=== PATIENT | female | born 1985 | race Caucasian/White ===

== ENCOUNTER 2019-04-16 06:04 | Outpatient (CLI) | payer BC ==
[~2019-04-16] VITALS: Ht 167.7 cm; Wt 73.6 kg
[~2019-04-16 06:04] MED LIST: CALC500T7 PO; DOCU100C37 PO; FAMO10TA43 PO; IBUP-1780 PO; IRON18TA PO; OXYC-465 PO; OXYC1TAB12 PO; PHEN37.53 PO; PREN-148 PO
[2019-04-18] MEDS ORDERED: DOCU-143 PO (07:45)
[2019-04-18] MEDS ORDERED: OXYC1TAB87 PO (07:45)
[2019-04-18] MEDS ORDERED: IBUP-1780 PO (07:45)
== END 2019-04-16 15:10 | disposition home or self-care (01) ==
LOC: PREOP 06:04
PROVIDERS: ATTEND Obstetrics & Gynecology
DX: Z01.818 Encounter for other preprocedural examination (principal)

== ENCOUNTER 2019-04-18 11:18 | Day surgery (SDC) | payer BC ==
[~2019-04-18] VITALS: Ht 167.7 cm; Wt 73.6 kg
[2019-04-18] VITALS (12 sets, daily range): BP systolic 100–141; BP diastolic 56–91
--- NOTE | 2019-04-18 07:40 | Progress Note-Pre Operative ---
Pre-Operative Progress Note H&P Reviewed The H&P was reviewed, patient examined and no changes noted. Date Seen by Provider: Apr 18, 2019 Time Seen by Provider: 12:32 Date H&P Reviewed: Apr 18, 2019 Time H&P Reviewed: 12:33 Pre-Operative Diagnosis: Chronic pelvic pain/severe dyspareunia HIPOLITO RICH MD Apr 18, 2019 07:40 POS
--- NOTE | 2019-04-18 07:41 | Progress Note-Post Operative ---
Post-Operative Progess Note Surgeon (s)/Dental Assisting Instructor (s) Surgeon HIPOLITO RICH MD Dental Assisting Instructor: Felicity CARO Pre-Operative Diagnosis Chronic pelvic pain/severe dyspareunia Post-Operative Diagnosis Same with extensive endometriosis and with abnormal appendix and with pathology pending Procedure & Operative Findings Date of Procedure 04/18/19 Procedure Performed/Findings TL H with BS, laparoscopic destruction of endometriosis, laparoscopic appendectomy Anesthesia Type GETA Estimated Blood Loss Estimated blood loss (mL): Minimal Specimens/Packing Specimens Removed Uterus and fallopian tubes, and appendix HIPOLITO RICH MD Apr 18, 2019 07:41 POS
--- NOTE | 2019-04-18 07:44 | Discharge Instructions ---
Discharge Instructions Discharge Medications New, Converted or Re-Newed RX: RX on Chart Patient Instructions Return to The Hospital For: As directed Activity & Diet Discharge Diet: No Restrictions Activity as Tolerated: No Orders-Post D/C & Referrals Follow Up Appt: Return to clinic on Saturday April 20, 2019 for staple removal Call to make follow up appt. for patient in 4 weeks. Activity: Rest for 24 hours, than as tolerated. Wound Care: May remove Band-Aid tomorrow. Replace as desired. Keep incisions clean and dry. Wash daily with soap and water. Please call in RX to patient pharmacy. Diet: As tolerated-Clear Liquids only if nauseated. Shower or tub bathe as desired. No driving for 24 hours, no alcoholic beverages for 24 hours, and nothing per vagina (no tampons, douching, or intercourse) for 8 weeks. Patient to return to the clinic as soon as possible for: Temperature greater than 101F, Severe Pain, Foul discharge from incision or vagina, Excessive Bleeding (more than a period). HIPOLITO RICH MD Apr 18, 2019 07:44 POS
[~2019-04-18 11:18] MED LIST changes: +DOCU-143 PO; +OXYC1TAB87 PO
[2019-04-18] MEDS ORDERED: LACTATED RINGERS 1,000 ML IV PRN (11:35)
[2019-04-18] MEDS ORDERED: BUPIVACAINE 0.25% 30 ML (SENSORCAINE) VIAL ONE (11:36)
[2019-04-18] MEDS ORDERED: BUP/EPI 0.5% 1:200,000 (MARCAINE) 10ML VIAL IJ ONE (11:37)
[2019-04-18] MEDS ORDERED: metroNIDAZOLE 500MG/100ML IVPB 100 ML IV ONE (11:45)
[2019-04-18] MEDS ORDERED: ceFAZolin INJECTION 1,000 MG in WATER (STERILE) FOR INJECTION 10 ML IV ONE (11:45)
[2019-04-18] MEDS ORDERED: ONDANSETRON 4 MG/2 ML (SDV) Z0FRAN ONE ×2 (12:10→12:31)
[2019-04-18] MEDS ORDERED: SCOPOLAMINE 1.5 MG (TRANSDERM-SCOP) PATCH ONE (12:10)
[2019-04-18] MEDS ORDERED: FAMOTIDINE 20MG/2ML IV (PEPCID) ONE (12:10)
[2019-04-18] MEDS ORDERED: ONDANSETRON 4 MG/2 ML (SDV) Z0FRAN IVP ONE (12:15)
[2019-04-18] MEDS ORDERED: SCOPOLAMINE 1.5 MG (TRANSDERM-SCOP) PATCH TD ONE (12:15)
[2019-04-18] MEDS ORDERED: FAMOTIDINE 20MG/2ML IV (PEPCID) IVP ONE (12:15)
[2019-04-18 12:16] LABS: BASOPHILS # (AUTO) 0.1 10^3/uL (0.0-0.1); BASOPHILS % (AUTO) 1 % (0-10); EOSINOPHILS % (AUTO) 0 % (0-10); HEMATOCRIT 45 % (35-52); HEMOGLOBIN 15.4 G/DL (11.5-16.0); LYMPHOCYTES # (AUTO) 3.2 X 10^3 (1.0-4.0); LYMPHOCYTES % (AUTO) 33 % (12-44); MEAN CORPUSCULAR HEMOGLOBIN 31 PG (25-34); MEAN CORPUSCULAR HGB CONC 35 G/DL (32-36); MEAN CORPUSCULAR VOLUME 89 FL (80-99); MONOCYTES # (AUTO) 0.8 X 10^3 (0.0-1.0); MONOCYTES % (AUTO) 8 % (0-12); NEUTROPHILS # (AUTO) 5.7 X 10^3 (1.8-7.8); NEUTROPHILS % (AUTO) 58 % (42-75); PLATELET COUNT 311 10^3/uL (130-400); RED CELL DISTRIBUTION WIDTH 13.3 % (10.0-14.5); WHITE BLOOD COUNT 9.8 10^3/uL (4.3-11.0)
[2019-04-18] MEDS ORDERED: fentaNYL INJECTION 100 MCG/2 ML AMP ONE ×3 (12:31→15:26)
[2019-04-18] MEDS ORDERED: ROCURONIUM 10 MG/ML 5 ML SYRINGE IV ONE (12:31)
[2019-04-18] MEDS ORDERED: GLYCOPYRROLATE 0.2 MG/ML (ROBINUL) 2 ML VIAL ONE (12:31)
[2019-04-18] MEDS ORDERED: SEVOFLURANE (ULTANE) 15 ML INHAL SOLN ONE ×5 (12:31→14:36)
[2019-04-18] MEDS ORDERED: DEXAMETHASONE 10 MG/ML (DECADRON) 1 ML VIAL ONE (12:31)
[2019-04-18] MEDS ORDERED: LIDOCAINE PF 2% 5 ML (XYLOCAINE) VIAL ONE (12:31)
[2019-04-18] MEDS ORDERED: proPOfol 200 MG/20 ML (DIPRIVAN) VIAL IV ONE (12:31)
[2019-04-18] MEDS ORDERED: MIDAZOLAM 2 MG/2 ML (VERSED) VIAL ONE (12:31)
[2019-04-18] MEDS ORDERED: NEOSTIGMINE 3 MG/3 ML VIAL ONE (12:31)
[2019-04-18] MEDS ORDERED: ONDANSETRON 4 MG/2 ML (SDV) Z0FRAN IVP PRN ×2 (14:45→15:00)
[2019-04-18] MEDS ORDERED: MEPERIDINE (DEMEROL) INJ 100 MG/ML IM PRN (14:45)
[2019-04-18] MEDS ORDERED: PROMETHAZINE INJ 25 MG/ML (PHENERGAN) AMP IM PRN (14:45)
[2019-04-18] MEDS ORDERED: KETOROLAC 30 MG/ML VIAL ONE (14:48)
[2019-04-18] MEDS ORDERED: HYDROmorphone 2 MG/ML VIAL (DILAUDID) ONE (14:59)
[2019-04-18] MEDS ORDERED: HYDROmorphone 2 MG/ML VIAL (DILAUDID) IV ONE (15:00)
[2019-04-18] MEDS ORDERED: MEPERIDINE (DEMEROL) INJ 50 MG/ML IVP ONE (15:00)
[2019-04-18] MEDS ORDERED: morphine INJ 10 MG/ML 1ML (SYR OR VIAL) IVP ONE (15:00)
[2019-04-18] MEDS ORDERED: fentaNYL INJECTION 100 MCG/2 ML AMP IVP ONE (15:00)
[2019-04-18] MEDS: KETOROLAC 30 MG/ML VIAL IVP SCH ×2 (15:04→21:02)
--- NOTE | 2019-04-18 15:55 | NUR ---
EUGENIO RAMIRES admitted to room 3305-1 VIA PT BED FROM PACU ACC BY POPPY SUAREZ MACHINE OPERATIONS SUPERVISOR AFTER A ROBOTIC ASSISTED LAPAROSCOPIC TOTAL HYSTERECTOMY WITH BILATERAL SALPINGECTOMY, DESTRUCTION OF ENDOMETRIOSIS, AND APPENDECTOMY TODAY BY DR. RICH. EUGENIO RAMIRES introduced to surroundings, call light, bed controls, phone, TV, temperature control, lights, meal times, smoking policy, visitor policy, side rail policy, bathrooms and showers. Patient Rights given to patient in the handbook.
--- NOTE | 2019-04-18 16:00 | NUR ---
VSS. ASSESSMENT COMPLETED. DENIES NEED FOR PAIN MEDICATION AT THIS TIME. WANTING GARCIA CATHETER OUT. ENCOURAGED TO WAIT A LITTLE WHILE TO SEE IF SENSATION GETS BETTER. S.O. AT BEDSIDE.
--- NOTE | 2019-04-18 16:15 | NUR ---
IV PLACED ON PUMP WITH NEW TUBING. SITE CLEAR. PT AND S.O. ORIENTED TO CALL LIGHT OPERATION.
[2019-04-18] MEDS: oxyCODONE/APAP 5/325MG (PERCOCET 5) TABLET PO PRN (16:57)
--- NOTE | 2019-04-18 16:57 | NUR ---
PERCOCET 2 TABS P.O. PER PT REQUEST FOR LOWER PELVIC PAIN. EATING CRACKERS. STATES S.O. WILL GO GET DINNER. THIS RN CONTACTED DIETARY FOR A MENU.
--- NOTE | 2019-04-18 17:00 | NUR ---
DR. RICH NOTIFIED O PT WANTING GARCIA D/C'ED. INFORMED OF URINE OUTPUT OF 50 CC.
--- NOTE | 2019-04-18 17:10 | NUR ---
GARCIA CATHETER D/C'ED. PERICARE PERFORMED. SCANT PINK DISCHARGE.
[2019-04-18] MEDS: D5 LR IV SOLUTION 1,000 ML IV SCH (17:13)
--- NOTE | 2019-04-18 17:14 | NUR ---
RT HERE TO DO INCENTIVE SPIROMETRY.
--- NOTE | 2019-04-18 17:46 | NUR ---
PT C/O PAIN BEING WORSE WITH CRAMPING IN LOWER PELVIS. DEMEROL 100 MG/PHENERGAN 25 MG IM IN RIGHT VG SITE. SITE CLEAR.
--- NOTE | 2019-04-18 17:50 | NUR ---
PT POSITIONED TO SIDE FOR COMFORT WITH ICE PACK FRESHENED TO ABDOMEN OVER INCISIONS AND WARM BLANKET TO HER BACK. LOTS OF FAMILY TO THE ROOM AT THIS TIME TO SEE PT.
--- NOTE | 2019-04-18 18:30 | NUR ---
RATES PAIN A 1/10 NOW. ENCOURAGED TO REST IF ABLE . STATES S.O. GOING TO [employer]IAL [employer]HEMATIC[employer]. VSS.
--- NOTE | 2019-04-18 20:02 | OPERATIVE REPORT ---
DATE OF SERVICE: 04/18/2019 PREOPERATIVE DIAGNOSES: Chronic pelvic pain with severe dyspareunia. POSTOPERATIVE DIAGNOSES: Chronic pelvic pain with severe dyspareunia with endometriosis and with abnormal appendix. OPERATIVE PROCEDURES: Total laparoscopic hysterectomy with bilateral salpingectomies, adhesiolysis, laparoscopic appendectomy and laparoscopic destruction of endometriosis implants. OPERATIVE DESCRIPTION: With the patient in the supine position under satisfactory general anesthesia, she was repositioned in the dorsal lithotomy position in the [facility] and prepped and draped in the usual fashion for abdominal and vaginal surgery. The urinary bladder was drained via Soriano catheter to dependent drainage. Weighted speculum was placed in the posterior fornix of vagina, cervix exposed and grasped anteriorly with single tooth tenaculum. Uterus was sounded to 11.5 cm with uterine sound. The cervix was then serially dilated with Gordy dilators to accommodate a Vira II manipulator. It was placed using a 6 mm x 8 cm uterine probe and a 35 mm colpotomy ring. Sutures of #1 Vicryl placed at 3 and 9 o'clock position of the cervix to affix the uterus to the manipulator. The patient was brought in low dorsal lithotomy position after the tenaculum and speculum were removed from the vagina. A 12 mm incision was made 5 cm superior to the umbilicus. Veress needle was placed through that incision into the abdominal cavity. Correct placement confirmed with water drop test. The abdomen was insufflated with 2.4 liters of carbon dioxide and the Veress needle was removed and a 12 mm port placed. The laparoscope was introduced. The abdominal wall was transilluminated and 8 mm ports were placed through incisions of those sizes 9 cm lateral to the umbilicus at a level of about 2 cm above the umbilicus. All three port sites were infiltrated with 0.25% Marcaine with epinephrine prior to incision. The patient was placed in Trendelenburg allowing the bowel spill up out of the pelvis. The da Paulette column was advanced on the patient and docked and operative instruments were placed and I retired to the da Paulette console. At the console using the vessel sealer on the right and a bipolar fenestrated grasper on the left, the pelvis was first examined. There was extensive endometriosis in the cul-de-sac. There were some adhesions of both ovaries more so on the right and then on the left to the ovarian fossa and to the back of the uterus. The uterus was quite mottled in appearance consistent with adenomyosis. The fallopian tubes were relatively normal although the left fallopian tube was fairly significantly clubbed on its distal end. The appendix was identified. It was a vermiform appendix with a firm nodular area in the distal third and the last centimeter or so of the appendix at its tip was injected and inflamed appearing. Decision was made to proceed with appendectomy concurrent with the rest of the procedure. Attention was first turned to the right fallopian tube and ovary. There were some adhesions of the tube to the ovary. These were taken free to allow the fallopian tube to be removed and conserve the ovary. This was done by placing the vessel sealer across the mesosalpinx clamping, cauterizing, dividing the tissue stepwise across to the uteroovarian pedicle where the uteroovarian pedicle was clamped, cauterized and divided as well as the round ligament, the broad ligament and eventually the cardinal ligament. Same procedure was performed on the left, allowing for conservation of both ovaries with removal of both fallopian tubes. The anterior lower uterine segment was then exposed using the vessel sealer on the right. The bladder peritoneum was divided. The bladder was carefully dissected down off the lower uterine segment and then colpotomy incision was started at 12 o'clock position onto the colpotomy ring. The vaginal wall was opened circumferentially completely around the cervix ensuring hemostasis along the way. With the colpotomy ring completely exposed. The uterus was free, it was extracted through the vagina with the fallopian tube still attached. Vaginal cuff was then closed with a running locked suture. A running and partially locked suture of V-Loc barbed suture starting from the first angle and continuing across the vaginal cuff to the left angle, taking care to ensure inclusion of the uterine vessel pedicles on each angle of the cuff. Hemostasis was complete. Good reapproximation was achieved. Attention was now turned to the appendix. The monopolar shear and the bipolar fenestrated grasper were used to elevate the appendix, perforate the mesoappendix at the base of the appendix and then divide the mesoappendix. The mesoappendiceal artery was stubborn and that it continued bleeding after being cauterized. So, the vessel sealer was used at that point to divide the mesoappendix leaving the appendix still attached to the cecum. Attention was turned back to the cul-de-sac where the extensive endometriosis was destroyed using electrocautery on the monopolar ewa and the bipolar fenestrated grasper for exposure. All of the endometriosis implants, which was basically a carpet of endometriosis across the cul-de-sac and up onto the uterosacral ligaments more so on the right and left. All of the implants were touched with electrocautery to destroy and when all of the implants were destroyed, the pelvis was examined for hemostasis. There being no further abnormal pathology and hemostasis assured, the da Paulette portion of the procedure was halted. The column was undocked from the patient, removed and then using the umbilical port to place an Endo-PARKER, the appendix was elevated. The Endo-PARKER was placed across the base of the appendix and fired, severing the appendix from its attachment and that was placed in an Endobag and brought out through the umbilical cord stump. The appendix was copiously irrigated as was the pelvis. There was no bleeding. There was no remaining pathology and at this point, the procedure was terminated after first dripping several drops of Betadine solution on the stump of the appendix. The operative instruments were removed under direct vision as were the ports. The abdomen was evacuated of the insufflating gas in the process of removing the ports. Skin incisions were closed with que after closing the fascia at the supraumbilical incision with a vtysri-[id number] suture of 2-0 Vicryl. Speculum was replaced in the vagina. The vaginal cuff was examined. It was completely reapproximated and completely hemostatic. Sponge and needle counts were now correct. Estimated blood loss was minimal. The patient tolerated the procedure well and was uneventfully awakened from her general anesthesia and transferred to the recovery room in stable condition. Job ID: [id number] DocumentID: [id number] Dictated Date: 04/18/2019 14:47:28 Validation Consultant Date: 04/18/2019 20:01:21 Dictated By: HIPOLITO RICH MD
[2019-04-19 00:20] VITALS: BP 110/62
[2019-04-19] MEDS: D5 LR IV SOLUTION 1,000 ML IV SCH (01:07)
[2019-04-19 04:23] VITALS: BP 95/52
[2019-04-19] MEDS: KETOROLAC 30 MG/ML VIAL IVP SCH (04:23)
--- NOTE | 2019-04-19 07:49 | Progress Note ---
Standard Progress Note Progress Notes/Assess & Plan Date Seen by a Provider: Apr 19, 2019 Time Seen by a Provider: 07:47 Progress/Assessment & Plan This patient is without complaint she is ambulating, voiding, tolerating oral intake, has good pain control, denies headache, denies shortness of breath, denies nausea vomiting, and denies chest pain Vital Signs Date Time Temp Pulse Resp B/P (MAP) Pulse Ox O2 Delivery O2 Flow Rate FiO2 04/19/19 04:23 36.4 87 16 95/52 (66) 96 Room Air 04/19/19 00:20 37.2 96 16 110/62 (78) 97 Room Air 04/18/19 21:02 37.3 97 16 100/56 (71) 96 Room Air 04/18/19 18:30 37.1 93 16 120/77 (91) 97 Room Air 04/18/19 16:38 37.0 74 16 111/80 (90) 100 Room Air 04/18/19 16:00 36.6 82 16 122/81 (95) 100 Room Air 04/18/19 15:55 36.1 20 116/78 (91) 98 Room Air 04/18/19 15:55 Room Air 04/18/19 15:45 Room Air 04/18/19 15:40 20 116/78 (91) 99 Room Air 04/18/19 15:30 OxyMask 3 04/18/19 15:30 20 121/85 (97) 100 OxyMask 3 04/18/19 15:20 20 122/77 (92) 100 OxyMask 3 04/18/19 15:15 OxyMask 5 04/18/19 15:10 20 121/77 (92) 100 OxyMask 5 04/18/19 15:00 OxyMask 5 04/18/19 15:00 20 126/79 (95) 100 OxyMask 5 04/18/19 14:53 36.1 16 121/73 (89) 100 OxyMask 5 04/18/19 14:53 OxyMask 5 04/18/19 12:20 36.6 95 16 141/91 (108) 98 Room Air I & O 04/19/19 07:00 Intake Total 3000 ml Output Total 770 ml Balance 2230 ml Vital signs are stable. Patient is afebrile. Abdomen is benign. Extremities show no clubbing or cyanosis. There is no Homans sign. Assessment and plan postoperative day number 1 doing well. Plan is for discharge home with follow-up in clinic Final Diagnosis Chronic pelvic pain HIPOLITO RICH MD Apr 19, 2019 07:49 POS
[2019-04-19] MEDS ORDERED: OXYC1TAB87 PO (07:55)
[2019-04-19 08:10] VITALS: BP 103/57
[2019-04-19] MEDS: oxyCODONE/APAP 5/325MG (PERCOCET 5) TABLET PO PRN (08:12)
--- NOTE | 2019-04-19 08:49 | Anesthesia-General Post-Op ---
General Patient Condition Mental Status/LOC: Same as Preop Cardiovascular: Satisfactory Nausea/Vomiting: Absent Respiratory: Satisfactory Pain: Controlled Complications: Absent Post Op Complications Complications None Follow Up Care/Instructions Patient Instructions None needed. Anesthesia/Patient Condition Patient Condition Patient is doing well, no complaints, stable vital signs, no apparent adverse anesthesia problems. No complications reported per nursing. PATY HELLER CRNA Apr 19, 2019 08:49 POS
[2019-04-19] MEDS ORDERED: DOCUSATE SODIUM 100 MG (COLACE) CAP PO SCH (09:00)
[2019-04-19] MEDS ORDERED: IBUPROFEN 800 MG (MOTRIN) TAB PO ONE (10:21)
[2019-04-19] MEDS ORDERED: IBUPROFEN 800 MG (MOTRIN) TAB PO SCH (14:45)
== END 2019-04-19 10:50 | disposition home or self-care (01) ==
LOC: SDC 11:18 → WS 15:55 → SDC 04-19 10:50
PROVIDERS: ATTEND Obstetrics & Gynecology
DX: N80.3 Endometriosis of pelvic peritoneum (principal); N88.8 Other specified noninflammatory disorders of cervix uteri; N73.6 Female pelvic peritoneal adhesions (postinfective); K38.8 Other specified diseases of appendix; Z86.19 Personal history of other infectious and parasitic diseases
CPT/HCPCS: 36415; 84703; 85025; 86850; 86900; 86901; 87081; 94640; 94664

== ENCOUNTER 2020-11-05 10:00 | Outpatient (RCR) | payer BC ==
[~2020-11-05 10:00] MED LIST changes: -OXYC-465 PO; +OXYC-556 PO; -PHEN37.53 PO; +PHEN37.58 PO
[2020-11-05 10:24] VITALS: BP 125/75
[2020-11-14] MEDS ORDERED: TIZA4CAP PO (05:44)
[2020-11-14] MEDS ORDERED: KETO10TA PO (05:44)
[2020-11-19] MEDS ORDERED: MTP25TSR PO (11:38)
[2020-11-19] MEDS ORDERED: OMEP20TA33 PO (11:38)
[2020-11-19] MEDS ORDERED: CLOM50CA2 PO (11:38)
== END 2021-02-03 | disposition home or self-care (01) ==
LOC: CARD 10:00
PROVIDERS: ATTEND Internal Medicine Cardiovascular Disease
DX: I25.10 Atherosclerotic heart disease of native coronary artery without angina pectoris (principal); I49.9 Cardiac arrhythmia, unspecified; I10 Essential (primary) hypertension
CPT/HCPCS: 93225; 93226; 93306; 93351

== ENCOUNTER 2020-11-14 04:49 | Emergency (ER) | payer BC ==
[~2020-11-14] VITALS: Ht 167.7 cm; Wt 90.7 kg
[~2020-11-14 04:49] MED LIST changes: +PHEN37.53 PO; -PHEN37.58 PO
[2020-11-14 05:15] VITALS: BP 135/93
--- NOTE | 2020-11-14 05:38 | ED Lower Extremity ---
General Chief Complaint: Lower Extremity Stated Complaint: SEVERE LEFT HIP PAIN Source: patient History of Present Illness Date Seen by Provider: Nov 14, 2020 Time Seen by Provider: 05:19 Initial Comments PT ARRIVES VIA POV FROM HOME, USING CRUTCHES C/O PAIN TO LEFT INGUINAL AREA FOR THE LAST 2 WEEKS AND GETTING MUCH WORSE NO INJURY OR UNUSUAL ACTIVITY NO RADIATION OF PAIN NO PARESTHESIAS OR MOTOR DEFICITS NO RASH TO AREA NO SWELLING TO AREA, AND NO SWELLING TO LEG NO HISTORY OF SIMILAR PT STATES SHE WENT TO CHIROPRACTOR AT [facility], AND HAD AN ADJUSTMENT WITHOUT RELIEF PT HAS BEEN SEEN AT WALK IN CLINIC AT [facility] LAST WEEK, XRAYS DONE PT SAW STATE DIRECTOR FELICIANO ELLIS LAST WEEK, MRI ORDERED FOR NEXT TUESDAY PT HAS BEEN PRESCRIBED HYDROCODONE 5/325--NO RELIEF, LAST DOSE WAS 1 HOUR AGO PT HAS BEEN PRESCRIBED FLEXERIL--IS NOT TAKING BECAUSE IT DID NOT HELP PT WAS PRESCRIBED PREDNISONE FOR 5 DAYS, FINISHED A COUPLE OF DAYS AGO AND IT DID NOT HELP PT HAD A "WALK IN" "TELE-HEALTH VISIT" AT [facility] AND NURSE CAME TO HER HOUSE AND GAVE HER A SHOT OF TORADOL. PT STATES IT HELPED ALOT, UNTIL IT WORE OFF PT IS A NURSE AT [facility]. STATES SHE WAS NOT ABLE TO GO TO WORK YESTERDAY DUE TO PAIN PT STATES INITIALLY, IT ONLY HURT IF SHE WAS WALKING, RUNNING WHILE PLAYING SOFTBALL, ETC PT STATES PAIN HAS PROGRESSED AND NOW IT HURTS ALL THE TIME, EVEN IF SHE IS LAYING DOWN Allergies and Home Medications Allergies Coded Allergies: Tetracyclines (Verified Allergy, Mild, HIVES, 07/07/15) Uncoded Allergies: "CYCLINES (Allergy, Unknown, 06/20/17) Home Medications Docusate Sodium 100 Mg Capsule, 100 MG PO BID Prescribed by: HIPOLITO CRUZ on 04/18/19 0745 Ibuprofen 800 Mg Tablet, 800 MG PO Q6H PRN for PAIN Prescribed by: HIPOLITO CRUZ on 04/18/19 0745 Ketorolac Tromethamine 10 Mg Tablet, 10 MG PO Q6H Prescribed by: DESIREE FREEMAN on 11/14/20 0544 Oxycodone HCl/Acetaminophen 1 Each Tablet, 1 TAB PO Q4H Prescribed by: HIPOLITO CRUZ on 04/19/19 0755 Tizanidine HCl 4 Mg Capsule, 4 MG PO TID Prescribed by: DESIREE FREEMAN on 11/14/20 0544 Patient Home Medication List Home Medication List Reviewed: Yes Review of Systems Constitutional: no symptoms reported Gastrointestinal: no symptoms reported Genitourinary: no symptoms reported Musculoskeletal: see HPI Skin: no symptoms reported Psychiatric/Neurological: No Symptoms Reported Past Tqaihya-Vfulnb-Qqqmcb Hx Past Med/Social Hx: Reviewed and Corrections made Patient Social History Alcohol Beverage of Choice: Wine Type Used: Cigarettes Former Smoker, Quit: May 30, 2018 2nd Hand Smoke Exposure: Yes Recent Hopitalizations: No Immunizations Up To Date Tetanus Booster (TDap): Less than 5yrs PED Vaccines UTD: Yes Seasonal Allergies Seasonal Allergies: No Past Medical History Surgeries: Yes (wisdom teeth, breast augmentation, uterine ablation) Breast Respiratory: No Currently Using CPAP: No Currently Using BIPAP: No Cardiac: Yes Hypertension Neurological: No Reproductive Disorders: No Female Reproductive Disorders: Menstrual Problems Genitourinary: No Gastrointestinal: No Musculoskeletal: No Endocrine: No HEENT: No Cancer: No Psychosocial: No Integumentary: No Blood Disorders: No Adverse Reaction/Blood Tranf: No Family Medical History Alzheimer's disease Grandmother-P, Onset:60 years & older Arthritis Grandmother-M, Onset:60 years & older Dementia Hypercholesterolemia 19 FATHER, Onset:50's - 60 Hypertension 19 MOTHER, Onset:50's - 60 Myocardial infarction Grandfather-M, Onset:60 years & older Parkinson's disease Grandmother-M, Onset:60 years & older Prostate cancer 19 FATHER, Onset:60 years & older Physical Exam Vital Signs Capillary Refill : Height, Weight, BMI Height: 5'6.00" Weight: 142lbs. 0.0oz. [id number]; 26.17 BMI Method: General Appearance: WD/WN, no apparent distress Cardiovascular: regular rate, rhythm, no murmur Respiratory: normal breath sounds Gastrointestinal: non tender, soft Back: normal inspection, no CVA tenderness, no vertebral tenderness Hips: right hip normal inspection; left hip other (TENDERNESS TO LEFT ANTERIOR HIP/ INGUINAL AREA. NO SWELLING OR EVIDENCE OF HERNIA. NO BRUISING OR DISCOLORATION OR RASH IN AREA. LIMITED ROM OF HIP DUE TO PAIN. NO PAIN POSTERIORLY. DISTAL MOTOR/SENSORY/VASCULAR INTACT.) Legs: left leg normal inspection Knees: left knee normal inspection Ankles: left ankle normal inspection Feet: left foot normal inspection Neurologic/Tendon: normal sensation, normal motor functions, normal tendon functions Neurologic/Psychiatric: talent management specialist II-XII nml as tested, no motor/sensory deficits, alert, normal mood/affect, oriented x 3 Skin: normal color, warm/dry, tattoos/piercings (MULTIPLE TATTOOS) NO BACK TENDERNESS, NO BUTTOCK TENDERNESS. NO SI JOINT TENDERNESS. Progress/Results/Core Measures Results/Orders My Orders Orders - DESIREE FREEMAN DO Ketorolac Injection (Toradol Injection) (11/14/20 05:45) Orphenadrine Inj (Ed Only) (Norflex Inje (11/14/20 05:45) Medications Given in ED Current Medications Medications Dose Ordered Sig/Kenneth Route Start Time Stop Time Status Last Admin Dose Admin Ketorolac Tromethamine 60 mg ONCE ONCE IM 11/14/20 05:45 11/14/20 05:46 DC 11/14/20 05:37 60 MG Orphenadrine Citrate 60 mg ONCE ONCE IM 11/14/20 05:45 11/14/20 05:46 DC 11/14/20 05:36 60 MG Departure Impression Primary Impression: Left inguinal pain Disposition: HOME, SELF-CARE Condition: Stable Departure-Patient Inst. Decision time for Depature: 05:45 Referrals: DARIUSZ FISCHER MD (PCP/Family) Primary Care Physician Patient Instructions: Groin Strain Add. Discharge Instructions: ALTERNATE ICE AND HEAT TO AREA AT 20 MINUTE INTERVALS USE CRUTCHES NEEDED FOR COMFORT CONTINUE HYDROCODONE NEEDED FOR PAIN FOLLOW UP WITH STATE DIRECTOR FELICIANO ELLIS FOR FURTHER CARE KEEP APPOINTMENT FOR MRI ON TUESDAY All discharge instructions reviewed with patient and/or family. Voiced understan jero. Scripts Tizanidine HCl (Zanaflex) 4 Mg Capsule 4 MG PO TID for Spasms, #15 CAP Prov: DESIREE FREEMAN DO 11/14/20 Ketorolac Tromethamine (Ketorolac Tromethamine) 10 Mg Tablet 10 MG PO Q6H for Pain, #15 TAB Prov: DESIREE FREEMAN DO 11/14/20 DESIREE FREEMAN DO Nov 14, 2020 05:38
[2020-11-14] MEDS ORDERED: TIZA4CAP PO (05:44)
[2020-11-14] MEDS ORDERED: KETO10TA PO (05:44)
[2020-11-14] MEDS ORDERED: KETOROLAC 60 MG/2 ML VIAL IM ONE (05:45)
[2020-11-14] MEDS ORDERED: ORPHENADRINE 60 MG/2 ML (NORFLEX) AMP (ED ONLY) IM ONE (05:45)
== END 2020-11-14 06:00 | disposition home or self-care (01) ==
LOC: EDUNIT# 04:49 → ER 04:54
DX: R10.32 Left lower quadrant pain (principal); I10 Essential (primary) hypertension; Z87.891 Personal history of nicotine dependence
CPT/HCPCS: 99284

== ENCOUNTER 2020-11-19 10:52 | Outpatient (CLI) | payer BC ==
[~2020-11-19] VITALS: Ht 167.7 cm; Wt 95.5 kg
[~2020-11-19 10:52] MED LIST changes: +KETO10TA PO; +TIZA4CAP PO
[2020-11-19] MEDS ORDERED: MTP25TSR PO (11:38)
[2020-11-19] MEDS ORDERED: OMEP20TA33 PO (11:38)
[2020-11-19] MEDS ORDERED: CLOM50CA2 PO (11:38)
== END 2020-11-19 11:47 | disposition home or self-care (01) ==
LOC: PREOP 10:52
PROVIDERS: ATTEND Orthopaedic Surgery
DX: Z01.818 Encounter for other preprocedural examination (principal)

== ENCOUNTER 2020-11-21 10:27 | Day surgery (SDC) | payer BC ==
--- NOTE | 2020-11-20 07:07 | HISTORY AND PHYSICAL ---
DATE OF SERVICE: This will be for outpatient surgery on 11/21/2020 for left hip percutaneous screw fixation. HISTORY OF PRESENT ILLNESS: The patient is a 35-year-old female with left lateral hip pain and groin pain over the last two weeks. She woke with pain and soreness. She reports no prior trauma or increase in activity. She has been ambulating with crutches and has undergone care attendant. Ultimately, she underwent an MRI, which revealed a tension-sided femoral neck stress fracture. She works as a registered nurse at [employer]. REVIEW OF SYSTEMS: No chest pain, no shortness of breath, no dysuria. PAST MEDICAL HISTORY: Anxiety, diabetes. PAST SURGICAL HISTORY: Hysterectomy. FAMILY HISTORY: Noncontributory. PRIMARY CARE PROVIDER: Dr. Glaser. MEDICATIONS: Cyclobenzaprine, tramadol, clomipramine, ondansetron, ____ Valium. ALLERGIES: ORTHO TRI-CYCLEN. SOCIAL HISTORY: The patient smokes tobacco. She drinks alcohol occasionally. PHYSICAL EXAMINATION: GENERAL: The patient is well-developed, well-nourished, in no acute distress. HEENT: Normocephalic, atraumatic. Pupils are equal, round and reactive to light. Oropharynx is clear. NECK: Supple, no lymphadenopathy. LUNGS: Clear to auscultation bilaterally. HEART: Regular rate and rhythm. ABDOMEN: Soft, nontender, nondistended. EXTREMITIES: The patient ambulates with an antalgic gait. She has pain in her groin with ambulation. She has painless internal rotation of the left hip. Negative straight leg raise. IMPRESSION: Left hip femoral neck stress fracture. PLAN: Percutaneous screw fixation of left femoral neck. The risks, benefits, options, ramifications and recovery were discussed at length with the patient. She understands and wishes to proceed. Job ID: [id number] DocumentID: [id number] Dictated Date: 11/18/2020 14:25:10 Hearing Therapy Director Date: 11/18/2020 14:44:03 Dictated By: ALMA ERWIN MD
[2020-11-21] VITALS (15 sets, daily range): BP systolic 98–145; BP diastolic 48–99
[~2020-11-21] VITALS: Ht 167.7 cm; Wt 108.1 kg
[~2020-11-21 10:27] MED LIST changes: +CLOM50CA2 PO; +MTP25TSR PO; +OMEP20TA33 PO
[2020-11-21] MEDS ORDERED: ceFAZolin INJECTION 1,000 MG in WATER (STERILE) FOR INJECTION 10 ML IV ONE (10:45)
[2020-11-21] MEDS: LACTATED RINGERS 1,000 ML IV PRN ×2 (10:55→15:47)
[2020-11-21] MEDS ORDERED: SCOPOLAMINE 1.5 MG (TRANSDERM-SCOP) PATCH TOP ONE (11:15)
[2020-11-21] MEDS ORDERED: ONDANSETRON 4 MG/2 ML (SDV) Z0FRAN IV ONE (11:15)
[2020-11-21] MEDS ORDERED: FAMOTIDINE 20MG/2ML IV (PEPCID) IV ONE (11:15)
[2020-11-21] MEDS ORDERED: MIDAZOLAM 2 MG/2 ML (VERSED) VIAL ONE ×2 (11:26→12:04)
[2020-11-21] MEDS ORDERED: ONDANSETRON 4 MG/2 ML (SDV) Z0FRAN ONE (11:26)
[2020-11-21] MEDS ORDERED: LIDOCAINE PF 2% 5 ML (XYLOCAINE) VIAL ONE ×2 (11:26→13:25)
[2020-11-21] MEDS ORDERED: fentaNYL INJ 100 MCG/2 ML AMP ONE (11:26)
[2020-11-21] MEDS ORDERED: proPOfol 200 MG/20 ML (DIPRIVAN) VIAL IV ONE ×2 (11:26→12:39)
--- NOTE | 2020-11-21 11:53 | Progress Note-Pre Operative ---
Pre-Operative Progress Note H&P Reviewed The H&P was reviewed, patient examined and no changes noted. Date Seen by Provider: Nov 21, 2020 Time Seen by Provider: 11:40 Date H&P Reviewed: Nov 21, 2020 Time H&P Reviewed: 07:11 Pre-Operative Diagnosis: left femoral neck stress fracture ALMA ERWIN MD Nov 21, 2020 11:53
--- NOTE | 2020-11-21 11:54 | Progress Note-Post Operative ---
Post-Operative Progess Note Surgeon (s)/Nurse'S Aides Teacher (s) Surgeon ALMA ERWIN MD Nurse'S Aides Teacher: none Pre-Operative Diagnosis left femoral neck stress fracture Post-Operative Diagnosis left femoral neck stress fracture Procedure & Operative Findings Date of Procedure 11/21/20 Procedure Performed/Findings percutaneous screw fixation left femoral neck Anesthesia Type GETA Estimated Blood Loss Estimated blood loss (mL): minimal Specimens/Packing Specimens Removed none Packing: none ALMA ERWIN MD Nov 21, 2020 11:54
[2020-11-21] MEDS ORDERED: BUPIVACAINE 0.25% 30 ML (SENSORCAINE) VIAL ONE ×2 (12:00→13:25)
[2020-11-21] MEDS ORDERED: SEVOFLURANE (ULTANE) 15 ML INHAL SOLN ONE ×2 (12:18→12:39)
[2020-11-21] MEDS ORDERED: morphine PF (DURAMORPH) 10 MG/10 ML AMP ONE (12:21)
[2020-11-21] MEDS ORDERED: fentaNYL INJ 100 MCG/2 ML AMP IVP ONE (13:00)
[2020-11-21] MEDS ORDERED: ONDANSETRON 4 MG/2 ML (SDV) Z0FRAN IVP PRN ×2 (13:00→14:45)
[2020-11-21] MEDS ORDERED: MEPERIDINE (DEMEROL) INJ 50 MG/ML IVP ONE (13:00)
[2020-11-21] MEDS ORDERED: morphine INJ 10 MG/ML 1ML (SYR OR VIAL) IVP ONE (13:00)
[2020-11-21] MEDS ORDERED: HYDROmorphone 2 MG/ML VIAL (DILAUDID) IV ONE (13:00)
--- NOTE | 2020-11-21 13:38 | Diagnostic Imaging Report ---
INDICATION: Fracture. COMPARISON: None Total fluoroscopy time: 56 seconds Total number of fluoroscopic images saved: 2 FINDINGS: Multiple intraoperative image intensifier views of the left hip were obtained intraoperatively. Images provided show 3 partially threaded cannulated screws within the left femoral head and neck. Please note, interpreting radiologist was not present during the procedure. IMPRESSION: 1. Fluoroscopic guidance provided intraoperatively. Dictated by: Dictated on workstation # [id number]
[2020-11-21] MEDS ORDERED: ACETAMINOPHEN 325 MG TABLET PO PRN (14:45)
[2020-11-21] MEDS ORDERED: oxyCODONE/APAP 5/325MG (PERCOCET 5) TABLET ONE (14:50)
[2020-11-21] MEDS: oxyCODONE/APAP 5/325MG (PERCOCET 5) TABLET PO PRN ×3 (14:51→22:08)
[2020-11-21] MEDS ORDERED: morphine INJ 4 MG/ML 1 ML (VIAL/SYRINGE) ONE (16:19)
[2020-11-21] MEDS: morphine INJ 4 MG/ML 1 ML (VIAL/SYRINGE) IVP PRN ×3 (16:24→22:46)
[2020-11-21] MEDS ORDERED: NICOTINE 7 MG (NICODERM) PATCH TD NR (18:15)
--- NOTE | 2020-11-21 19:13 | OPERATIVE REPORT ---
DATE OF SERVICE: 11/21/2020 PREOPERATIVE DIAGNOSIS: Left femoral neck stress fracture. POSTOPERATIVE DIAGNOSIS: Left femoral neck stress fracture. PROCEDURE: Percutaneous screw fixation of left femoral neck. SURGEON: Kevin Erwin MD ANESTHESIA: General endotracheal by Gerard Landon CRNA. ESTIMATED BLOOD LOSS: 50 mL. DRAINS: None. COMPLICATIONS: None. POSTOPERATIVE PLAN: Toe touch weightbearing, left lower extremity. MATERIALS: Synthes short thread 7.3 cannulated screws. STATEMENT OF MEDICAL NECESSITY: The patient is a 35-year-old female with left hip pain of acute onset. She denied trauma, but an MRI was ultimately obtained, which revealed a stress fracture at the femoral neck. This appeared to be complete. Therefore, it was recommended the patient undergo operative fixation. DESCRIPTION OF PROCEDURE: After risks and benefits of procedure were discussed and questions were answered, informed consent was signed and placed on chart, the operative site was confirmed in the preoperative holding area initialed by the surgeon. The patient was then transferred to the operating room and after adequate levels of general endotracheal anesthetic were obtained, the patient was carefully placed on the fracture table. Fluoroscopy in the AP and lateral planes revealed anatomic alignment of the femoral neck. The left hip was then prepped and draped in the usual sterile fashion. A percutaneous incision was made and three guidewires were passed into the femoral head. These were felt to be in excellent position. These were then overdrilled and 85 mm length short threaded 7.3 cancellous screws were placed, all with excellent purchase. Fluoroscopy in AP and lateral planes revealed anatomic alignment of the femoral neck with well-placed hardware. The wound was copiously irrigated and under fluoroscopic guidance, Marcaine was injected into the hip joint as well as Duramorph and into the subcutaneous tissues Marcaine was injected. After further irrigating 2-0 Vicryl was used to reapproximate subcutaneous tissue. Skin was closed with 4-0 nylon vertical mattress interrupted fashion. A soft dressing was applied. The patient was transferred to the recovery room awake and in stable condition. Job ID: [id number] DocumentID: [id number] Dictated Date: 11/21/2020 12:55:28 Technical Consultant Date: 11/21/2020 19:11:58 Dictated By: KEVIN ERWIN MD
[2020-11-21] MEDS ORDERED: ENOXAPARIN 40 MG/0.4 ML (LOVENOX) SYR SQ SCH (19:15)
[2020-11-22] MEDS: morphine INJ 4 MG/ML 1 ML (VIAL/SYRINGE) IVP PRN ×4 (02:04→11:02)
[2020-11-22] MEDS: oxyCODONE/APAP 5/325MG (PERCOCET 5) TABLET PO PRN ×2 (03:26→08:35)
[2020-11-22 04:12] VITALS: BP 106/58
[2020-11-22 07:44] VITALS: BP 125/71
[2020-11-22] MEDS ORDERED: NICOTINE PATCH REMOVAL TP SCH (08:59)
[2020-11-22] MEDS ORDERED: NICOTINE 7 MG (NICODERM) PATCH TD SCH (09:00)
--- NOTE | 2020-11-22 10:12 | Progress Note ---
Standard Progress Note Progress Notes/Assess & Plan Date Seen by a Provider: Nov 22, 2020 Time Seen by a Provider: 10:09 Progress/Assessment & Plan patient fearful to get out of bed. c/o pain in knee and anterior thigh. yesterday her complaint was garcia pain. she reports this has resolved. she denies paresthesias Vital Signs Date Time Temp Pulse Resp B/P (MAP) Pulse Ox O2 Delivery O2 Flow Rate FiO2 11/22/20 07:44 36.5 106 20 125/71 (89) 96 Room Air 11/22/20 04:12 36.9 105 17 106/58 (74) 96 Room Air 11/21/20 23:45 37.0 103 17 98/62 (74) 95 Room Air 11/21/20 20:42 36.7 108 20 131/73 (92) 97 Room Air 11/21/20 20:00 97 Room Air 11/21/20 16:39 Room Air 11/21/20 16:20 36.5 95 22 117/65 (82) 96 Room Air 11/21/20 15:10 36.7 102 20 135/82 96 Room Air 11/21/20 14:40 36.7 104 20 126/84 97 Simple Mask 1.00 11/21/20 14:10 36.7 83 18 132/80 98 Simple Mask 2.00 11/21/20 14:10 36.4 18 134/84 (101) 94 OxyMask 2 11/21/20 14:10 OxyMask 2 11/21/20 14:02 OxyMask 2 11/21/20 14:00 18 132/89 (103) 96 OxyMask 2 11/21/20 13:57 OxyMask 2 11/21/20 13:54 Room Air 11/21/20 13:50 18 134/96 (109) 95 Room Air 11/21/20 13:48 Room Air 11/21/20 13:47 OxyMask 3 11/21/20 13:40 18 123/96 (105) 100 OxyMask 3 11/21/20 13:35 OxyMask 3 11/21/20 13:30 18 134/88 (103) 100 OxyMask 6 11/21/20 13:20 18 145/90 (108) 100 OxyMask 6 11/21/20 13:20 OxyMask 6 11/21/20 13:10 18 136/99 (111) 99 OxyMask 6 11/21/20 13:05 OxyMask 6 11/21/20 13:00 18 118/63 (81) 100 OxyMask 6 11/21/20 12:52 37.0 16 98/48 (65) 100 OxyMask 6 11/21/20 12:52 OxyMask 6 11/21/20 11:47 36.4 108 20 132/94 (107) 97 Room Air I & O 11/22/20 07:00 Intake Total 2360 ml Output Total 2550 ml Balance -190 ml L hip dressing intact. pulses equal distally. no sensory deficit to light touch. no tenderness in leg. able to passively IR/ER hip s/p L hip perc screw fixation with pain control issues PT increase oxycodone plssible DC later today if mobile and pain managed ALMA ERWIN MD Nov 22, 2020 10:12
--- NOTE | 2020-11-22 10:31 | Physical Therapy Ortho Eval ---
PT Orthopedic Evaluation Type of Surgery left hip pinning Prior Level of Function Current Living Status: Spouse Locomotion (Upon Admit): Crutches Established Durable Medical Eq: Crutches Subjective Subjective Patient is emotional due to pain left hip. Agrees to PT. Entry Into Home: Stairs With Railing Steps Into Home: 6 Motor Control Motor Control: Motor Control WNL ROM ROM: WFL, except focal deficit Strength Strength: WFL Transfer SCALE: Activities may be completed with or without assistive devices. 8-Mnkgxtonpn-aqjslbq completes the activity by him/herself with no assistance from a helper. 5-Set-up or Clean-up Assistance-helper sets up or cleans up; patient completes activity. [place] assists only prior to or following the activity. 4-Supervision or Touching Assistance-helper provides verbal cues and/or touching/steadying and/or contact guard assistance as patient completes activity. Assistance may be provided throughout the activity or intermittently. 3-Partial/Moderate Assistance-helper does LESS THAN HALF the effort. [place] lifts, holds or supports trunk or limbs, but provides less than half the effort. 2-Substantial/Maximal Assistance-helper does MORE THAN HALF the effort. [place] lifts or holds trunk or limbs and provides more than half the effort. 6-Gitnekftk-uknmlo does ALL the effort. Patient does none of the effort to complete the activity. Or, the assistance of 2 or more helpers is required for the patient to complete the activity. If activity was not attempted, code reason: 7-Patient Refused. 9-Not Applicable-not attempted and the patient did not perform the activity before the current illness, exacerbation or injury. 10-Not Attempted due to Environmental Limitations-(lack of equipment, weather restraints, etc.). 88-Not Attempted due to Medical Conditions or Safety Concerns. Transfers (B, C, W/C) (QC): 4 (CGA with gait belt (spouse training with gait belt use for home)) Spouse assisted patient with bed mobility to assist left LE Gait Gait Assistive Device: Crutches Right Lower Extremity: Right Weight Bearing Status RLE: Weight Bearing/Tolerated Left Lower Extremity: Left Weight Bearing Status LLE: Touch Toe Bearing Patient is able to comply with left TTWB without difficulty Gait (QC): 4 (CGA) Distance (QC): 3=150 ft Distance: 150' Gait Level of Assist: 4 (CGA ) Treatment Rendered Treatment: Gait Train, Step Train, Reviewed Precautions, Caregiver Instruction Exercise Instruction: Heel Slides, Ankle Pumps, Other (LAQ) Assessment/Goals Goal Time Frame: 1 Visit Safe Ambulation: Yes stair training/family training Plan Treatment Plan: Bed Mobility, Discharge, Education, Functional Activity Tolerated, Functional Strength, Gait, Other (stair training), Safety, Therapeutic Exercise, Transfers Treatment Duration: 1 session PT/Family Agrees to Plan: Yes Time Time In: 1000 Time Out: 1025 Total Billed Treatment Time: 25 Billed Treatment Time 1 visit [facility] 25 min ZACK MCKEON PT Nov 22, 2020 10:31
[2020-11-22 10:39] VITALS: BP 125/71
[2020-11-22] MEDS ORDERED: oxyCODONE/APAP 5/325MG (PERCOCET 5) TABLET PO PRN (10:45)
[2020-11-22 11:28] VITALS: BP 128/81
--- NOTE | 2020-11-22 15:02 | Anesthesia-General Post-Op ---
General Patient Condition Mental Status/LOC: Same as Preop Cardiovascular: Satisfactory Nausea/Vomiting: Absent Respiratory: Satisfactory Pain: Controlled Complications: Absent Post Op Complications Complications None Follow Up Care/Instructions Patient Instructions None needed. Anesthesia/Patient Condition Patient Condition Patient is doing well, no complaints, stable vital signs, no apparent adverse anesthesia problems. No complications reported per nursing. WILMER ALMANZA CRNA Nov 22, 2020 15:02
== END 2020-11-22 13:00 | disposition home or self-care (01) ==
LOC: SDC 10:27 → EDSTATUS 11:00 → 4TH 15:25 → SDC 11-22 13:00
PROVIDERS: ATTEND Orthopaedic Surgery
DX: M84.359A Stress fracture, hip, unspecified, initial encounter for fracture (principal); F41.9 Anxiety disorder, unspecified; E11.9 Type 2 diabetes mellitus without complications; Z90.710 Acquired absence of both cervix and uterus; Z79.899 Other long term (current) drug therapy; Z79.891 Long term (current) use of opiate analgesic
CPT/HCPCS: 76000; 87081; 94664

== ENCOUNTER 2020-12-06 08:00 | Emergency (ER) | payer BC ==
[~2020-12-06] VITALS: Ht 167 cm; Wt 97.0 kg
[2020-12-06] MEDS ORDERED: KETAMINE SYRINGE 50 MG/5 ML SYRINGE IV ONE (08:15)
--- NOTE | 2020-12-06 08:21 | ED Hip Pain/Injury ---
General Chief Complaint: Hip/Pelvic Problems Stated Complaint: L HIP PAIN Nursing Triage Note: PT ARRIVED PER EMS, PT HAS FALL LAST PM, PT HAS HAD RECENT HIP SURG 2 WEEKS AGO. SL IN PLACE IN L AC Source: patient Exam Limitations: no limitations History of Present Illness Date Seen by Provider: Dec 06, 2020 Time Seen by Provider: 08:02 Initial Comments Here with complaint of left hip pain after left hip surgery [address] ERWIN. She apparently had fracture that required pinning and states that she had 3 pins placed. She was doing okay up until last night. She was sitting on a high bench and leaned forward to get off the bench and put her crutches down. Apparently it was farther down than she thought and she stumbled forward and landed on her knees bilateral. She did not hit her head and did not lose consciousness. [place] a jarring motion and thought she felt a pop in the left hip with the fall. She took a couple of oxycodone tablets that she had leftover from surgery and that did not help. This morning she was unable to get up to go to the bathroom without severe pain. EMS called. They did give fentanyl 100 mcg IV x2 which only partially reduce the pain. Denies other injuries or concerns. Denies any recent illnesses. Otherwise has been doing well since her surgery. Timing/Duration: yesterday, getting worse Severity: moderate Location: hip (L), pelvis Method of Injury: fell Modifying Factors: Improves With Immobilization; Worse With Movement Associated Symptoms: denies symptoms Allergies and Home Medications Allergies Coded Allergies: Tetracyclines (Verified Allergy, Mild, HIVES, 07/07/15) Uncoded Allergies: "CYCLINES (Allergy, Unknown, 06/20/17) Home Medications Clomipramine HCl 50 Mg Capsule, 50 MG PO HS, (Reported) Metoprolol Succinate 25 Mg Tab.er.24h, 25 MG PO HS, (Reported) Omeprazole Magnesium 20 Mg Tablet.dr, 20 MG PO HS, (Reported) Patient Home Medication List Home Medication List Reviewed: Yes Review of Systems Constitutional: see HPI; No chills, No fever EENTM: no symptoms reported Respiratory: no symptoms reported Cardiovascular: no symptoms reported Musculoskeletal: joint pain, muscle pain Psychiatric/Neurological: No Symptoms Reported All Other Systems Reviewed Negative Unless Noted: Yes Past Bzplcpd-Azkyul-Rpfrld Hx Patient Social History Tobacco Use?: No Smoking Status: Former Smoker Substance use?: No Alcohol Use?: No Pt feels they are or have been: No Immunizations Up To Date Tetanus Booster (TDap): Less than 5yrs PED Vaccines UTD: Yes Second COVID19 Vaccination Reggie: MODERNA BOTH VACCINES Seasonal Allergies Seasonal Allergies: No Past Medical History Surgeries: Yes (wisdom teeth, breast augmentation, uterine ablation) Breast, Hysterectomy Respiratory: No Currently Using CPAP: No Currently Using BIPAP: No Cardiac: Yes Hypertension Neurological: No Reproductive Disorders: No Female Reproductive Disorders: Menstrual Problems FAMILY INTERVENTION SPECIALIST History: Hysterectomy Genitourinary: No Gastrointestinal: No Musculoskeletal: Yes (Left hip fx) Endocrine: No HEENT: No Cancer: No Psychosocial: No Integumentary: No Blood Disorders: No Adverse Reaction/Blood Tranf: No Family Medical History Reviewed Nursing Family Hx Alzheimer's disease Grandmother-P, Onset:60 years & older Arthritis Grandmother-M, Onset:60 years & older Dementia Hypercholesterolemia 19 FATHER, Onset:50's - 60 Hypertension 19 MOTHER, Onset:50's - 60 Myocardial infarction Grandfather-M, Onset:60 years & older Parkinson's disease Grandmother-M, Onset:60 years & older Prostate cancer 19 FATHER, Onset:60 years & older Physical Exam Vital Signs Vital Signs - First Documented 12/06/20 08:05 Temp 36.1 Pulse 95 Resp 20 Capillary Refill : Less Than 3 Seconds Height, Weight, BMI Height: 5'6.00" Weight: 142lbs. 0.0oz. [id number]; 34.00 BMI Method: General Appearance: WD/WN, Moderate Distress HEENT: PERRL/EOMI, Pharynx Normal Neck: Full Range of Motion, Non Tender, Supple Cardiovascular: Regular Rate, Rhythm, No Murmur Respiratory: Lungs Clear, Normal Breath Sounds Gastrointestinal: Non Tender, Soft Extremity: Pelvis Stable, Other (Moderate tenderness to left hip) Neurologic/Psychiatric: Alert, Oriented x3 Skin: Normal Color, Warm/Dry Progress/Results/Core Measures Results/Orders Lab Results Laboratory Tests Test 12/06/20 08:42 Range/Units White Blood Count 14.5 H 4.3-11.0 10^3/uL Red Blood Count 4.40 3.80-5.11 10^6/uL Hemoglobin 13.5 11.5-16.0 g/dL Hematocrit 40 35-52 % Mean Corpuscular Volume 91 80-99 fL Mean Corpuscular Hemoglobin 31 25-34 pg Mean Corpuscular Hemoglobin Concent 34 32-36 g/dL Red Cell Distribution Width 12.6 10.0-14.5 % Platelet Count 470 H 130-400 10^3/uL Mean Platelet Volume 9.7 9.0-12.2 fL Immature Granulocyte % (Auto) 1 % Neutrophils (%) (Auto) 78 H 42-75 % Lymphocytes (%) (Auto) 14 12-44 % Monocytes (%) (Auto) 7 0-12 % Eosinophils (%) (Auto) 0 0-10 % Basophils (%) (Auto) 1 0-10 % Neutrophils # (Auto) 11.3 H 1.8-7.8 10^3/uL Lymphocytes # (Auto) 2.0 1.0-4.0 10^3/uL Monocytes # (Auto) 1.0 0.0-1.0 10^3/uL Eosinophils # (Auto) 0.0 0.0-0.3 10^3/uL Basophils # (Auto) 0.1 0.0-0.1 10^3/uL Immature Granulocyte # (Auto) 0.1 0.0-0.1 10^3/uL Neutrophils % (Manual) 75 % Lymphocytes % (Manual) 15 % Monocytes % (Manual) 9 % Eosinophils % (Manual) 1 % Blood Morphology Comment NORMAL Sodium Level 136 135-145 MMOL/L Potassium Level 4.0 3.6-5.0 MMOL/L Chloride Level 99 98-107 MMOL/L Carbon Dioxide Level 21 21-32 MMOL/L Anion Gap 16 H 5-14 MMOL/L Blood Urea Nitrogen 13 7-18 MG/DL Creatinine 0.83 0.60-1.30 MG/DL Estimat Glomerular Filtration Rate > 60 BUN/Creatinine Ratio 16 Glucose Level 116 H 70-105 MG/DL Calcium Level 10.8 H 8.5-10.1 MG/DL Corrected Calcium 10.5 H 8.5-10.1 MG/DL Total Bilirubin 0.4 0.1-1.0 MG/DL Aspartate Amino Transf (AST/SGOT) 31 5-34 U/L Alanine Aminotransferase (ALT/SGPT) 49 0-55 U/L Alkaline Phosphatase 119 40-136 U/L Total Protein 7.7 6.4-8.2 GM/DL Albumin 4.4 3.2-4.5 GM/DL My Orders Orders - FREDY ROSE MD Pelvis With Left Hip 2-3 Views (12/06/20 08:15) Ketamine Syringe (Ketamine Syringe) (12/06/20 08:15) Cbc With Automated Diff (12/06/20 08:23) Comprehensive Metabolic Panel (12/06/20 08:23) Manual Differential (12/06/20 08:42) Ketorolac Injection (Toradol Injection) (12/06/20 09:02) Hydromorphone Injection (Dilaudid Inject (12/06/20 09:15) Hydromorphone Injection (Dilaudid Inject (12/06/20 12:15) Catheter(Urinary) Insert & Ass 03,15 (12/06/20 12:09) Medications Given in ED Current Medications Medications Dose Ordered Sig/Kenneth Route Start Time Stop Time Status Last Admin Dose Admin Hydromorphone HCl 0.5 mg ONCE ONCE IV 12/06/20 09:15 12/06/20 09:16 DC 12/06/20 09:08 0.5 MG Ketamine HCl 25 mg ONCE ONCE IV 12/06/20 08:15 12/06/20 08:17 DC 12/06/20 08:24 25 MG Vital Signs/I&O 12/06/20 08:05 Temp 36.1 Pulse 95 Resp 20 B/P (MAP) Progress Progress Note : Progress Note Seen and evaluated. Ketamine 25 mg IV. X-ray left hip and pelvis ordered. Monitor patient. 1000: Subtrochanteric left hip fracture noted. This is new from previous and a change from films after pinning. Patient will require orthopedic specialty which is not available currently here. Given that she has hardware already with 3 pins to repair the previous fracture 3 weeks ago, this may be challenging. We will begin process of transfer. I did discuss all of this with the patient and family who verbalized understanding. She has received 0.5 of Dilaudid and 30 mg of Toradol IV for pain which is only helping to a limited extent. She would like to hold off for a little bit before more pain medicine but she is still in quite a bit of pain currently. Monitor patient. 1007: [facility] is on diversion. 1008: [facility] in [facility] is also over capacity and on diversion. We will begin work to find areas outside of local region for transfer. 1150: Dr. Evans at [facility] in [place], [place] has graciously accepted patient for transfer. We will begin process of trying to find ambulance service to transfer patient. Films have been clouded to their system. We will send copy as backup. We will go ahead and initiate Soriano catheter for the patient as well as give Dilaudid 0.5 mg IV now for increasing pain. Patient agrees to transfer to their center. Pending transport. Diagnostic Imaging Diagonstic Imaging: Xray Plain Films/CT/US/NM/MRI: pelvis, hip Comments [facility], [place] NAME: EUGENIO RAMIRES [facility] REC#: [id number] PT STATUS: REG ER : 1985 PHYSICIAN: FREDY ROSE MD ADMIT DATE: 12/06/20/ER Draft Date of Exam:12/06/20 PELVIS WITH LEFT HIP 2-3 VIEWS INDICATION: Pain. FINDINGS: There are 3 partially threaded cannulated screws in the left hip. There is a subtrochanteric lucency. A nondisplaced fracture in this region cannot be excluded. Right is intact. Pelvis is intact. IMPRESSION: Subtrochanteric lucency on the left suspect for nondisplaced fracture. Recommend clinical correlation, if warranted follow up with CT. Dictated on workstation # [id number] Dict: 12/06/20929 Trans: 12/06/[address] [facility] [id number] Interpreted by: WANDA GUY MD Electronically signed by: Departure Impression Primary Impression: Fracture of hip, left, closed Qualified Codes: S72.002A - Fracture of unspecified part of neck of left femur, initial encounter for closed fracture Disposition: XFER SHT-TRM HOSP Condition: Stable Transfer Transfer Reason: Exceeds level of care Time Spoke to Accepting Phy: 11:50 Transfer Facility: [facility], [place], [place], Dr. vEans accepting Method of Transfer: EMS Departure-Patient Inst. Referrals: DARIUSZ FISCHER MD (PCP/Family) Primary Care Physician FREDY ROSE MD Dec 06, 2020 08:21
[2020-12-06 08:48] LABS: BASOPHILS # (AUTO) 0.1 10^3/uL (0.0-0.1); BASOPHILS % (AUTO) 1 % (0-10); EOSINOPHILS % (AUTO) 0 % (0-10); HEMATOCRIT 40 % (35-52); HEMOGLOBIN 13.5 g/dL (11.5-16.0); LYMPHOCYTES % (AUTO) 14 % (12-44); MEAN CORPUSCULAR HEMOGLOBIN 31 pg (25-34); MEAN CORPUSCULAR HGB CONC 34 g/dL (32-36); MEAN CORPUSCULAR VOLUME 91 fL (80-99); MEAN PLATELET VOLUME 9.7 fL (9.0-12.2); MONOCYTES % (AUTO) 7 % (0-12); NEUTROPHILS # (AUTO) 11.3 10^3/uL (1.8-7.8); NEUTROPHILS % (AUTO) 78 % (42-75); PLATELET COUNT 470 10^3/uL (130-400); WHITE BLOOD COUNT 14.5 10^3/uL (4.3-11.0)
[2020-12-06 08:57] LABS: ALBUMIN 4.4 GM/DL (3.2-4.5)
[2020-12-06 08:58] LABS: CHLORIDE 99 MMOL/L (98-107); SODIUM 136 MMOL/L (135-145)
[2020-12-06 08:59] LABS: CALCIUM 10.8 MG/DL (8.5-10.1)
[2020-12-06 09:00] LABS: GLUCOSE 116 MG/DL (70-105); TOTAL PROTEIN 7.7 GM/DL (6.4-8.2)
[2020-12-06 09:01] LABS: CARBON DIOXIDE 21 MMOL/L (21-32)
[2020-12-06 09:02] LABS: BILIRUBIN,TOTAL 0.4 MG/DL (0.1-1.0)
[2020-12-06] MEDS ORDERED: KETOROLAC 30 MG/ML VIAL IVP STA (09:02)
[2020-12-06 09:03] LABS: ALKALINE PHOSPHATASE 119 U/L (40-136)
[2020-12-06 09:04] LABS: CREATININE SERUM 0.83 MG/DL (0.60-1.30); GFR ESTIMATED > 60
[2020-12-06 09:05] LABS: BUN/CREATININE RATIO 16
[2020-12-06 09:07] LABS: ALANINE AMINOTRANSFERASE 49 U/L (0-55)
[2020-12-06] MEDS ORDERED: HYDROmorphone 2 MG/ML VIAL (DILAUDID) IV ONE ×2 (09:15→12:15)
--- NOTE | 2020-12-06 09:33 | Diagnostic Imaging Report ---
INDICATION: Pain. FINDINGS: There are 3 partially threaded cannulated screws in the left hip. There is a subtrochanteric lucency. A nondisplaced fracture in this region cannot be excluded. Right is intact. Pelvis is intact. IMPRESSION: Subtrochanteric lucency on the left suspect for nondisplaced fracture. Recommend clinical correlation, if warranted follow up with CT. Dictated by: Dictated on workstation # [id number]
[2020-12-06 09:38] LABS: EOSINOPHILS % (MANUAL) 1 %; LYMPHOCYTES % (MANUAL) 15 %; MONOCYTES % (MANUAL) 9 %; NEUTROPHILS % (MANUAL) 75 %; RBC MORPH NORMAL
[2020-12-06 15:34] VITALS: BP 122/70
== END 2020-12-06 15:34 | disposition short-term general hospital (02) ==
LOC: EDUNIT# 08:00 → ER 08:03
DX: S72.22XA Displaced subtrochanteric fracture of left femur, initial encounter for closed fracture (principal); I10 Essential (primary) hypertension; Z87.891 Personal history of nicotine dependence; W18.30XA Fall on same level, unspecified, initial encounter
CPT/HCPCS: 36415; 51702; 80053; 85007; 85027

== ENCOUNTER 2021-04-21 15:42 | Outpatient (RCR) | payer BC ==
[~2021-04-21 15:42] MED LIST changes: -PHEN37.53 PO; +PHEN37.58 PO
== END 2021-05-29 | disposition home or self-care (01) ==
PROVIDERS: ATTEND Physician Assistant Surgical
DX: M84.352D Stress fracture, left femur, subsequent encounter for fracture with routine healing (principal); Z98.890 Other specified postprocedural states

== ENCOUNTER → 2022-02-09 | Outpatient (CLI) | payer BC ==
--- NOTE | 2022-02-09 17:46 | Diagnostic Imaging Report ---
PROCEDURE: MR imaging of the brain without contrast. TECHNIQUE: Multiplanar, multisequence MR imaging of the brain was performed without contrast. INDICATION: Severe headaches, weight gain COMPARISONS: None FINDINGS: Midline structures are nondisplaced. Lateral, 3rd and 4th ventricles are normal in size, shape and anatomic position. There is no evidence of intra-axial mass, mass effect, hydrocephalus or hemorrhage. No areas of diffusion restriction or diffusion signal abnormalities seen to suggest acute or subacute ischemic injury. Zacarias-white differentiation is maintained and there is no sulcal effacement. There are no abnormal extra-axial fluid collections or hemorrhage. Petrous apices as well as 7th and 8th nerve complexes are normal. Semicircular canals and cochlea show normal signal. Visualized vascular flow voids are unremarkable. Craniovertebral junction is normal. Sellar and suprasellar regions are also unremarkable. Sinuses, orbits and mastoid air cells are normal. IMPRESSION: Unremarkable nonenhanced MRI brain. Dictated by: Dictated on workstation # [id number]
== END ==
LOC: RAD 13:09
PROVIDERS: ATTEND Family Medicine
DX: R51.9 Headache, unspecified (principal); R63.5 Abnormal weight gain
CPT/HCPCS: 70551